=== PATIENT | female | born 1990 | race Caucasian/White ===

== ENCOUNTER 2018-07-07 14:45 | Emergency (ER) | payer OTHER ==
[2018-07-07] MEDS ORDERED: ONDANSETRON 4 MG/2 ML VIAL IVP ONE (15:39)
--- NOTE | 2018-07-07 16:31 | EDPHY ---
General Time Seen by Provider: 07/07/18 15:11 Narrative: CLINICAL IMPRESSION: Constipation, nausea ASSESSMENT/PLAN: 28-year-old otherwise healthy female visiting our area from [facility] presents to the emergency department with 2 days of generalized abdominal discomfort, rated 2/10, associated with nausea. No vomiting, diarrhea, bloody stools, fever or chills. Urine dip unremarkable and urine is negative. No abnormal symptoms or history of gynecologic abnormality. She is approximately 1 week out of her menstrual cycle and I did entertain the possibility of ovarian cyst. Abdomen soft, nonfocal, non peritoneal, patient is otherwise nontoxic and nonseptic appearing with stable vital signs. KUB shows mild constipation with no evidence of small-bowel obstruction. Patient admits to history of constipation. I do not feel she requires additional emergent laboratory evaluation or ultrasound/CT imaging at this time. She will try [id number] stool softeners and laxatives. Low threshold for return to ED sooner as outlined and discharge papers and person. DIFFERENTIAL DX: Abdominal pain includes but not limited to urinary tract infection, pyelonephritis, infection, ectopic , salpingitis, TOA, ovarian torsion, ovarian cyst, endometriosis, uterine fibroids, acute appendicitis, acute diverticulitis, small-bowel obstruction, constipation ED PROCEDURES: See lab and/or imaging results below ED COURSE: 4:20 p.m.: Patient reassessed, states her abdomen is feeling somewhat better, nausea improved. Urine negative, urine dip unremarkable. X-rays consistent with mild constipation, no evidence of SBO or free air. Patient's abdomen remains soft without focal peritoneal findings. CHIEF COMPLAINT: Abdominal pain, mild nausea HPI: 28-year-old female presents to the emergency department with generalized abdominal discomfort for the last 2 days. This is associated with nausea but no vomiting, diarrhea, fever, chills, UTI symptoms, flank pain, or abnormal discharge. She is slightly over mid cycle in her menstrual cycle and denies . She has not had anything to eat today due to lack of appetite but did eat yesterday. She plans to return home to [place] in 2 days. She has tried Imodium with minimal relief. She currently rates her pain 08/14. PAST MEDICAL HISTORY: None reported See triage summary and nurse notes for addition applicable history Pertinent Past Surgical History: No prior abdominal surgery Family History: IBS Social History: Visiting from [facility], nonsmoker REVIEW OF SYSTEMS: A full 10 point review of systems was negative except for those mentioned in HPI. PHYSICAL EXAM: General Appearance: Alert, oriented, appropriate, cooperative, NAD, well hydrated, non-toxic appearing, VSS, no hypoxia. Neck: Supple, nontender, no lymphadenopathy, no midline pain, FROM, no meningismus. Respiratory: There are no retractions, lungs are clear to auscultation. Cardiac: Regular rate and rhythm, no murmurs or gallops. Gastrointestinal: Abdomen is soft, mild tenderness to left lower quadrant, bowel sounds normal, no masses/hernia, no rigidity, guarding or focal peritoneal findings. Skin: Warm, dry, no rashes, no nodules on palpation. MEDICAL DECISION MAKING: Patient was seen independently. Secondary supervising physician at time of evaluation was: Dr Fowler. Diagnosis: Mild constipation and nausea. New, requires workup Summary: See Assessment and Plan for summary of ED visit Clinical lab tests: ordered / reviewed. Independent visualization of images, tracing, or specimens: Yes. Decision to obtain medical records or history from someone other than the patient: No Review / Summarize previous medical records: None available Discussed patient with another provider: No Patient Progress: Stable. - Diagnostics Imaging Results: Imaging Impressions Abdomen X-Ray 07/07/18 15:39 Impression: Mild constipation. - History Smoking Status: Never smoked - Objective Vital Signs: Initial Vital Signs Temperature (C) 36.5 C 07/07/18 14:47 Heart Rate 78 07/07/18 14:47 Respiratory Rate 18 07/07/18 14:47 Blood Pressure 118/80 07/07/18 14:47 O2 Sat (%) 95 07/07/18 14:47 O2 Delivery Mode Room Air Allergies/Adverse Reactions: No Known Allergies Allergy (Unverified 07/07/18 14:51) Home Medications: Medication Instructions Recorded Wellbutrin Xl 07/07/18 Medications Given: Discontinued Medications Ondansetron HCl (Zofran) 4 mg IVP EDNOW ONE Stop: 07/07/18 15:40 Last Admin: 07/07/18 15:59 Dose: 4 mg Point of Care Test Results: Urine Collection Date 07/07/18 Collection Time 15:35 HCG Results Negative Urine Dip Collection Date 07/07/18 Collection Time 15:37 Specific [place] (1.002-1.030) 1.000 PH (5.0-7.5) 6.5 Leukocytes (Negative) Negative Nitrites (Negative) Negative Protein (Negative) Trace Glucose (Negative) Negative Ketones (Negative) Negative Urobilnogen (0.2-1.0 EU) 0.2 Bilirubin (Negative) Negative Blood (Negative) Negative Departure - Departure Disposition: Home, Routine, Self-Care Clinical Impression: Nausea Constipation Qualifiers: Constipation type: other constipation type Qualified Code(s): K59.09 - Other constipation Condition: Good Instructions: Constipation (ED) Additional Instructions: DISCHARGE INSTRUCTIONS FROM YOUR DOCTOR Thank you for visiting our emergency department today. Please keep in mind that discharge from the emergency department does not mean that there is nothing wrong - it simply means that we have not identified an emergency condition that requires further evaluation or treatment in the hospital. You should always plan to follow up with primary care for re-evaluation of your condition in the next 2-3 days. If you have been referred to a specialist, please call as soon as possible (today or tomorrow) to schedule your follow up appointment at the appropriate time. X-RAYS OF HER ABDOMEN SHOW MILD CONSTIPATION WITH NO EVIDENCE OF OBSTRUCTION OR FREE AIR. URINE STUDIES WERE NORMAL, YOU'RE NOT . WE RECOMMEND TRYING MIRALAX [id number], 1 CAP FULL OF POWDER MIXED WITH A LARGE 8 OZ GLASS OF WATER. YOU CAN ALSO TRY DULCOLAX SUPPOSITORIES. PLEASE INCREASE FIBER , FRUITS, VEGETABLES AND WATER. RETURN TO THE EMERGENCY DEPARTMENT FOR WORSENING ABDOMINAL PAIN, ABDOMINAL DISTENSION, DEVELOPMENT OF FEVER GREATER THAN 100.4, VOMITING, INABILITY EAT, INABILITY TO PASS STOOL OR GAS, OR ANY OTHER CONCERNS. PLEASE FOLLOW UP WITH PRIMARY CARE IN HER HOME STATE WHEN YOU RETURN. People present with illnesses and injuries in different ways, and it is always possible that we have missed something. You may always return for re-evaluation if symptoms worsen or if they are not improving or if you develop new/different symptoms. Again, thank you for choosing our emergency department. We hope that you feel better. Referrals: NONE *PRIMARY CARE P,. [Primary Care Provider] - As per Instructions
[2018-07-07 16:54] VITALS: BP 113/79
== END 2018-07-07 16:54 | disposition home or self-care (01) ==
DX: R11.0 Nausea (principal); K59.09 Other constipation
CPT/HCPCS: J2405

== ENCOUNTER 2018-12-24 09:45 | Emergency (ER) | payer OTHER | END 2018-12-24 10:12 | disposition home or self-care (01) ==